=== PATIENT | female | born 1980 | race Caucasian/White ===

== ENCOUNTER 2022-12-10 16:42 | Emergency (ER) | payer BC ==
[~2022-12-10] VITALS: Ht 152.4 cm; Wt 47.6 kg
[2022-12-10 16:50] VITALS: O2SAT 100
== END 2022-12-10 17:20 | disposition home or self-care (01) ==
LOC: ER 17:00
DX: H01.00B Unspecified blepharitis left eye, upper and lower eyelids (principal)
CPT/HCPCS: 99284